=== PATIENT | female | born 1965 | race American Indian/Alaskan Native ===

== ENCOUNTER 2018-02-24 05:42 | Inpatient (IN) | payer OTHER ==
[2018-02-19 10:50] VITALS: BMI 33.3
[2018-02-24] MEDS ORDERED: Bacitracin Ointment 30 GM TUBE ONE (07:36)
[2018-02-24] MEDS ORDERED: cefOXitin IV 1 gm in Dextrose 2 GM/100 ML BAG IVPB ONE (07:37)
[2018-02-24] MEDS ORDERED: Propofol 10 mg/ml Inj (20 ML) ONE (07:44)
[2018-02-24] MEDS ORDERED: Midazolam 2 MG/2 ML VIAL ONE (07:45)
[2018-02-24] MEDS ORDERED: Methylene Blue 10 mg/mL(10ml) IV ONE (08:42)
[2018-02-24] MEDS ORDERED: Neostigmine Methylsulfate 3mg/3ml Syringe IV ONE (09:22)
[2018-02-24] MEDS ORDERED: Lactated Ringer's 1,000 ML IV SCH (09:45)
[2018-02-24] MEDS: HYDROmorphone 0.5 mg/0.5 ml ISec IVP PRN ×2 (09:56→10:24)
[2018-02-24] MEDS ORDERED: HYDROmorphone 0.5 mg/0.5 ml ISec ONE (09:58)
[2018-02-24] MEDS ORDERED: Lactated Ringer's 1,000 ML IV ONE (11:15)
[2018-02-24] MEDS ORDERED: cefOXitin IV 2 gm in Dextrose 2 GM/50 ML BAG IVPB SCH (16:00)
[2018-02-24] MEDS ORDERED: cefOXitin IV 2 gm in Saline 2 GM/50 ML BAG IVPB ONE (16:47)
--- NOTE | 2018-02-24 21:56 | OP ---
PROCEDURE DATE: 02/24/2018 PREOPERATIVE DIAGNOSES: Fibroid uterus, menorrhagia. POSTOPERATIVE DIAGNOSES: Fibroid uterus, menorrhagia. PROCEDURE: Total abdominal hysterectomy, bilateral salpingectomy, cystoscopy. FINDINGS: A 20-week size moderate fibroid uterus with normal tubes and ovaries. Normal bladder and urethra SURGEON: Murtaza Gage MD. ANESTHESIA: General. ESTIMATED BLOOD LOSS: 150 mL. COMPLICATIONS: Nil. INDICATION: The risks, benefits and alternatives of the planned procedures including but not limited to infection, hemorrhage, deep vein thrombosis, atelectasis, pneumonia, pulmonary embolism, damage to the bladder, damage to the ureter, renal insufficiency, renal failure, wound infection, wound dehiscence, incisional hernia, keloid formation, damage to the large and small intestine, damage to the inferior vena cava and the aorta requiring extensive repair, anesthesia complications, electrolyte imbalance, possibility of , fluid overload, cerebral edema, embolism, and other complications that were discussed but are not listed above had been explained to the patient and all her questions were answered, informed consent was obtained. DESCRIPTION FOR PROCEDURE: The patient was taken to the operating room in a stable condition under a suitable level of general anesthesia. She was prepped and draped in a sterile fashion after having been placed in a supine position. The abdomen was entered through a Pfannenstiel type incision, carried through the subcutaneous tissues through the fascia. Fascia was opened transversely and dissected off the rectus abdominis musculature. The rectus abdominis musculature was then in the midline to remove the parietal peritoneum which was entered sharply and incised superiorly and inferiorly. An O'Shubham-O'Bran retractor was inserted in the abdomen, and the bowel was packed away from the pelvic cavity. The uterus was then elevated from the pelvic cavity. The right and left cardinal ligaments were then clamped, cut, and ligated using #0 Vicryl suture. The anterior lip of the broad ligament was opened on the right and left side and joining the midline. The bladder was then dissected off the lower uterine segment and cervix. A hole was made in the broad ligament on the right and left side. The upper portion of the broad ligament, cornua, and utero-ovarian ligaments was doubly clamped, cut, and doubly ligated using #0 Vicryl suture. The right and left uterine vessels were doubly clamped, cut, and doubly ligated using #0 Vicryl suture. The right and left mesosalpinx was resected to resect both the right and left fallopian tubes. The right and left cardinal ligaments were then clamped, cut, and ligated using #0 Vicryl suture. The right and left uterosacral ligaments were then clamped, cut, and ligated using #0 Vicryl suture. The right and left upper portion of the broad ligament, cornua, and utero-ovarian ligaments were doubly clamped, cut, and doubly ligated using #0 Vicryl suture. The cervix was then incised circumferentially, and the uterine specimen in the cervix were removed and submitted for pathology. Right and left vaginal cuff angles were closed using a suspension suture to include the ipsilateral cardinal and uterosacral ligaments . The remainder of the vaginal vault was closed using interrupted sutures of 0 Vicryl suture. Pelvic peritoneum was then reapproximated over the vaginal cuff. Peritoneal cavity was irrigated using copious amounts of saline. The saline was evacuated. The abdomen was then closed in layers with 0 chromic till the parietal peritoneum. The rectus muscles were reapproximated using interrupted sutures of 0 chromic. Fascia was reapproximated using two separate running sutures of 0 Vicryl to meet in the midline. Subcutaneous tissues were reapproximated using interrupted sutures of 0 plain, and the initial skin incision was reapproximated using 4-0 Vicryl in a subcuticular fashion. The patient was then placed in a dorsal lithotomy position, and cystoscopy was performed. The urethra and bladder neck were normal. The anterior of the bladder was normal. Both ureteric orifices were visualized and noted to be patent. The patient had been given IV methylene blue prior. At the end of the procedure, a Thomas catheter was inserted. The patient was then transferred to the recovery room in a stable condition. Pad and instrument counts were correct x2. There were no complications. Murtaza Gage MD
[2018-02-24] MEDS: Oxycodone/Acetaminophen 5/325 mg Tab PO PRN (22:54)
[2018-02-25] MEDS: cefOXitin 2 GM in Sodium Chloride 0.9% 100 ML IVPB SCH ×2 (00:07→08:24)
[2018-02-25] MEDS: Oxycodone/Acetaminophen 5/325 mg Tab PO PRN ×4 (06:41→21:12)
[2018-02-25] MEDS ORDERED: Simethicone 80 mg Chewtab PO PRN (07:36)
[2018-02-25 07:45] LABS: HEMOGLOBIN 10.7 g/dL (11.0-16.0); MEAN CELL VOLUME 77.6 fL (81.0-99.0); MEAN CORPUSCULAR HEMOGLOBIN 26.9 pg (27.0-31.0); MEAN CORPUSCULAR HGB CONC 34.7 g/dL (33.0-37.0); MEAN PLATELET VOLUME 9.5 fL (7.2-11.7); RBC 3.98 Mil/uL (3.80-5.20); RED CELL DISTRIBUTION WIDTH 16.1 % (11.5-14.5); WHITE BLOOD COUNT 10.2 K/uL (4.8-10.8)
[2018-02-25] MEDS ORDERED: cefOXitin IV 2 gm in Saline 2 GM/50 ML BAG IVPB ONE (08:22)
[2018-02-25] MEDS: Enoxaparin 40 mg Syringe SC SCH (11:07)
[2018-02-25] MEDS ORDERED: cefOXitin IV 2 gm in Dextrose 2 GM/50 ML BAG IVPB SCH ×2 (18:30→21:00)
[2018-02-25 21:32] VITALS: RESP 20; O2SAT 98
[2018-02-26 07:57] VITALS: BP 105/64; PULSE 103; TEMP 98.2
[2018-02-26] MEDS: Oxycodone/Acetaminophen 5/325 mg Tab PO PRN (09:07)
[2018-02-26] MEDS: Enoxaparin 40 mg Syringe SC SCH (09:09)
--- NOTE | 2018-02-27 01:55 | PN ---
DATE: 02/26/2018 SUBJECTIVE: The patient has no complaints. OBJECTIVE: VITAL SIGNS: Stable. She is afebrile. ABDOMEN: Soft. Incision is clean and intact. Bowel sounds are normal. EXTREMITIES: Nontender. Montse's sign is negative. ASSESSMENT: The patient is status post total abdominal hysterectomy, bilateral salpingectomy, cystoscopy day 2. PLAN: Discharge the patient home on Keflex 500 mg 4 times daily x7 days and Tylenol No. 3 two tablets every 4 hourly for total of 20 tablets. To be followed up in the office in one week. Murtaza Gage MD
--- NOTE | 2018-02-27 07:48 | DS ---
The patient is a 53-year-old female who was admitted with h/o fibroid uterus, menorrhagia. She underwent a total abdominal hysterectomy, bilateral salpingectomy, cystoscopy. Postoperatively she remained afebrile. She was discharged to home on postoperative day #2 on Keflex 500 mg 4 times daily x7 days and Tylenol No. 3 two tablets every 4 hourly p.r.n. for a total of 20 tablets. To be followed up in the office in 1 week. Murtaza Gage MD MTDD
== END 2018-02-26 14:48 | disposition home or self-care (01) | DRG 359 ==
LOC: C.9S 05:42 → C.4M 10:18
PROVIDERS: ADMIT Obstetrics & Gynecology Reproductive Endocrinology; ATTEND Obstetrics & Gynecology Reproductive Endocrinology
PROC: 0UT90ZZ Resection of Uterus, Open Approach (ICD-10-PCS; 2018-02-24)
PROC: 0UT70ZZ Resection of Bilateral Fallopian Tubes, Open Approach (ICD-10-PCS; 2018-02-24)
PROC: 0TJB8ZZ Inspection of Bladder, Via Natural or Artificial Opening Endoscopic (ICD-10-PCS; principal; 2018-02-24 07:45)
DX: D25.1 Intramural leiomyoma of uterus (principal); D25.0 Submucous leiomyoma of uterus; D25.2 Subserosal leiomyoma of uterus; N92.0 Excessive and frequent menstruation with regular cycle